=== PATIENT | male | born 1950 | race Caucasian/White ===

== ENCOUNTER 2020-11-21 15:24 | Observation (INO) | payer MEDICARE, SELFPAY ==
--- NOTE | 2020-11-14 10:40 | EKG12_ITS ---
Test Reason : PRE SURGERY Blood Pressure : / mmHG Vent. Rate : 072 BPM Atrial Rate : 072 BPM P-R Int : 200 ms QRS Dur : 082 ms QT Int : 390 ms P-R-T Axes : 046 024 046 degrees QTc Int : 427 ms Sinus rhythm with occasional Premature ventricular complexes Otherwise normal ECG Confirmed by JOSE ANN, KOBE ([id number]), editorial cartoonist ZOILA JAQUEZ ([id number]) on 11/18/2020 11:21:45 AM Referred By: Cory Loyd Confirmed By:MUSTAPHA GARCIA MD
--- NOTE | 2020-11-14 11:10 | RAD_ITS ---
STUDY: X-RAY CHEST REASON FOR EXAM: Male, 70 years old. PRE-OP laminectomy TECHNIQUE: Single AP portable view of the chest. COMPARISON: None. FINDINGS: Hyperinflation. Mild increased markings at the lung bases suggestive of linear scarring. There is no demonstrated pleural abnormality. Sternal cerclage wires and vascular clips are present from a prior sternotomy and coronary artery bypass graft procedure (CABG). Normal mediastinum and katy. Normal visualized pulmonary arteries. There is atherosclerotic calcification of the aortic arch with tortuosity. There are diffuse degenerative changes of the visualized thoracic spine. Mild dextroscoliosis. Normal visualized ribs, clavicles, and shoulders. There is no demonstrated abnormality of the visualized soft tissue structures of the upper abdomen. RAD/Chest PA and Lateral IMPRESSION: Mild increased markings at the lung bases slightly more prominent on the left side suggestive of linear scarring. Electronically Signed: Tacho Vasquez MD at 15:41 EST , Service support ,
[2020-11-14 12:52] LABS: Hematocrit 48.2 % (40-54); Hemoglobin 16.1 g/dL (13.0-16.5); Mean Corp Hgb Conc 33.4 g/dL (32-36); Mean Corpuscular Hgb 30.3 pg (27.0-32.0); Mean Corpuscular Volume 90.8 fL (80-94); Mean Platelet Vol. 10.2 fl (6.2-12.0); Platelet Count 212 K/mm3 (150-450); RBC Distribution Width CV 13.1 % (11.6-14.6); Red Blood Count 5.31 M/mm3 (4.6-6.2)
[2020-11-14 13:29] LABS: Anion Gap 10 (5-15); BUN 18 mg/dL (7-18); BUN/Creat Ratio 12.9 RATIO (10-20); Calcium,Total 8.7 mg/dL (8.5-10.1); Chloride 105 mmol/L (98-107); EST Glomerular Filtration Rate 53 mL/min (>60); Est Glom Filt Rate - Afr Amer 64 mL/min (>60); Glucose 166 mg/dL (74-106); Potassium 4.1 mmol/L (3.5-5.1); Sodium Level 139 mmol/L (136-145)
[2020-11-14 14:40] LABS: Hemoglobin A1c 7.2 % (3.8-5.6)
[2020-11-21] VITALS (13 sets, daily range): BP systolic 113–165; BP diastolic 65–101; PULSE 59–77; RESP 16–18; TEMP 35.7–36.8; O2SAT 85–100; BMI 47.0; BMI 46.7
[2020-11-21] MEDS: Lactated Ringers 1,000 ML 100 ML IV (10:39)
--- NOTE | 2020-11-21 11:51 | DCINST_ITS ---
Discharge Diet: No Restrictions Discharge Activity: - - No repetitive bending twisting or lifting anything greater than 5 pounds May shower in (days): 1 - Keep incision covered with waterproof dressing May resume sexual activity in: 3 weeks Weight Bearing Status: Weight bearing as tolerated Lifting Restrictions: No lifting greater than 5 pounds Additional Activity Instructions:: No bending, twisting, or lifting anything greater than 5 pounds Call your doctor if your incision/area has: Continuous Slow Oozing, Sudden Increased Bleeding, Increased Pain/ Swelling, Increased Redness, Foul Smelling Discharge, Swelling at the incision site Call your doctor if you observe: Fever of 101 or Higher, Coldness, Increased Pain, Numbness or Tingling, Change in Color, Inability to urinate, Inability to have a bowel movement, Using more than one pad per hour, Shortness of breath, Dizziness, Fainting spells, Swelling in the ankles, Chest pain, Prolonged hiccoughing, Increased palpitations (irregular heartbeat), Calf discomfort, Uncontrolled pain Change Dressing in (Days):: 1 - Daily dressing changes with iodine to incision Cleanse incision/area with: Do not get Incision Wet, Keep Dressing Clean & Dry Additional Dressing/Incision Instructions:: Daily dressing changes with iodine to incision Allergies/Adverse Reactions: Allergies ciprofloxacin [From Cipro] Allergy (Verified 11/21/20 10:15) caused injury to spine sulfamethoxazole [From Bactrim] Adverse Reaction (Verified 11/21/20 10:15) ineffective trimethoprim [From Bactrim] Adverse Reaction (Verified 11/21/20 10:15) ineffective Medications to take at Discharge Ascorbic Acid [Vitamin C] 500 mg PO DAILY 11/08/20 B-Complex with Vitamin C [Super B Complex-Vitamin C] 1 ea PO DAILY 11/08/20 Cholecalciferol (Vitamin D3) [Vitamin D3] 2,000 unit PO DAILY 11/08/20 Citalopram [Celexa] 40 mg PO DAILY 11/08/20 Fenofibrate Nanocrystallized [Fenofibrate] 160 mg PO QHS 11/08/20 Gabapentin [Neurontin] 300 mg PO BIDCM 11/08/20 Insulin Regular, Human [Novolin R] 15 unit SC TID 11/08/20 Lorazepam 0.5 mg PO PRN PRN 11/08/20 Multivitamin with Minerals [Multiple Vitamin] 1 ea PO DAILY 11/08/20 Rosuvastatin Calcium [Crestor] 40 mg PO QHS 11/08/20 Ubidecarenone [Coq-10] 200 mg PO DAILY 11/08/20 metFORMIN HCl [Glucophage] 500 mg PO BIDCM 11/08/20 Oxycodone HCl/Acetaminophen [Percocet 5/325] 1 - 2 tab PO Q6H PRN PRN 7 Days #56 tab 11/21/20 The following prescriptions were given: Oxycodone HCl/Acetaminophen [Percocet 5/325] 1 - 2 tab PO Q6H PRN PRN 7 Days #56 tab PRN Reason: Pain Transmission Status: Received by RAJIV [id number] Primary Care Physician: Dano Ballesteros MD [Primary Care Provider] - Test Results: Test results from this visit will be discussed in further detail at your follow- up appointment, if applicable. Please Follow Up With: Cory Loyd DO - 3 weeks
--- NOTE | 2020-11-21 12:45 | RAD_ITS ---
L3-L4 LAMINECTOMY 2 views No priors Findings: 2 intraoperative images of the lumbar spine demonstrate localization device overlying the soft tissues of lumbar spine at approximately the level of L3-4 RAD/Spine 1 View Any Level IMPRESSION: Intraoperative images demonstrate localization device overlying the soft tissues of lumbar spine at approximately the level of L3-4 at 0335 Reported and signed by: Cora Casanova DO Electronically Signed: Cora Casanova DO at 3:34 EST Tel , Service support ,
[2020-11-21] MEDS: THROMBIN (RECOMBINANT) 20,000 UNIT VIAL 20000 UNIT TOPICAL (13:50)
[2020-11-21] MEDS: Bupivacaine 0.25% 30 ML Vial (15:54)
--- NOTE | 2020-11-21 16:16 | PCM.OPRPT ---
Problem List (1) Lumbar stenosis without neurogenic claudication Status: Acute Report of Operation Date of Procedure: 11/21/20 Pre-Operative Diagnosis: 1. Lumbar spondylosis with stenosis L3-4, L4-5. 2. Lumbar degenerative disc disease L3-4, L4-5 Post-Operative Diagnosis: 1. Lumbar spondylosis with stenosis L3-4, L4-5. 2. Lumbar degenerative disc disease L3-4, L4-5 Surgery/Procedure Performed:: 1. L3 laminectomy. 2. L4 laminectomy. 3. Bilateral L3-4 and L4-5 foraminotomies. 4. Decompression of bilateral L3 and L4 nerve roots Description of Surgical Findings:: STATEMENT OF MEDICAL NECESSITY: The patient is a 70-year-old male with intractable back and leg pain. Image studies confirm above diagnosis. He has failed conservative treatment to include: medicine, therapy, and injections. The patient opted for operative intervention, understanding the risks to include, but not limited to infection, bleeding, damage to nerves, arteries, and veins, possibility of spinal fluid leak, continued pain, need for further surgery, deep vein thrombosis, pulmonary embolism, heart attack, risk of stroke, or . DESCRIPTION OF PROCEDURE: The patient was transferred to the [facility] operating table in the prone position. All bony prominences were padded accordingly. The lumbar spine was prepped and draped in standard surgical fashion. Jeet huggers were not turned on until drapes were placed and sealed with Ioban. A Midline incision was made and taken down to the lumbodorsal fascia. This was divided and subperiosteal dissection taken down to the level of facet joints. Deep retractors were placed. I began with the Misonix bone scalpel, then a series of rongeurs and Kerrisons removing the spinous process and lamina at L3, and L4. Then, foraminotomies were performed decompressing bilateral the L3 and L4 nerve roots. The incision was then thoroughly irrigated. Tissel was placed over the dura as a hemostatic agent. A deep drain was placed. Fascia was closed with #1 Vicryl, subcutaneous with 2-0 Vicryl, and skin with 2-0 nylon. Sterile dressing was applied with 4 x 4, ABD, and tape. Sponge, instrument, and needle counts were correct at the end of the case. The patient was extubated, taken to PACU without incident. Type of Anesthesia:: General Drains: Hemovac Estimated Blood Loss (mL): 200 cc Fluids Replaced: 1600 cc - Complications None - Admit VTE Documentation VTE Mechan Device Prophylaxis: SCD's, Thigh High VERA Palacios
--- NOTE | 2020-11-21 16:37 | PCM.PN.ORT ---
Patient Problems: Active and Suspected Problems Lumbar stenosis without neurogenic claudication (Acute) Subjective: The patient was seen and examined postoperatively in the PACU. He is resting comfortably. His pain is controlled. He has no complaints. He is alert and answering questions and following commands - Physical Exam Vitals/I&O's: Vital Signs Temp Pulse Resp BP Pulse Ox 96.2 F L 73 16 165/101 H 96 11/21/20 16:10 11/21/20 16:10 11/21/20 16:10 11/21/20 16:10 11/21/20 16:10 Oxygen Delivery Method Room Air Weight: 332 lb 14.368 oz Body Mass Index (BMI) 47.0 Intake and Output for Last 24 Hours 11/19/20 11/20/20 11/21/20 23:59 23:59 23:59 Intake Total 115 / 115 Output Total 300 / 300 Balance -185 / -185 General: Alert, Oriented x3, Cooperative, No apparent distress HEENT: PERRLA, EOMI Neck: Supple, No JVD Lungs: Normal air movement Cardiovascular: Regular rate, Regular Rhythm Abdomen: Soft, Non Tender Extremities: No cyanosis, No edema, Capillary Refill Less than 3 Seconds, No Calf Tenderness Skin: - - Dressing clean dry and intact. Drain in place and functioning Neurological: Cranial nerves II-XII grossly intact, Deep Tendon Reflexes 2+/4 and Symmetrical, Neuro grossly intact, Motor Exam 5/5 strength throughout Psych/Mental Status: Normal Affect, Appropriate Microbiology Past 72 Hours 11/20/20 10:50 Interface Orders SARS-CoV-2 Antigen (Rapid) - Final Current Medications Lactated Ringer's () 1,000 mls @ 100 mls/hr IV .Q10H EKY Last Admin: 11/21/20 10:39 Dose: 100 mls/hr Documented by: Cefazolin Sodium 2 gm/ Sodium (Chloride) 110 mls @ 150 mls/hr IV Q8 KEY Morphine Sulfate (Morphine 4 Mg/Ml Syringe) 2 - 4 mg IV Q2H PRN PRN PRN Reason: 7-10 out of 10 pain Morphine Sulfate (Morphine 2 Mg/Ml Syringe) 2 - 4 mg IV Q2H PRN PRN PRN Reason: 7-10 out of 10 pain Ondansetron HCl (Ondansetron 4 Mg/2 Ml Vial) 4 mg IV Q8H PRN PRN PRN Reason: NAUSEA Oxycodone HCl (Oxycodone 5 Mg Tablet) 2.5 - 5 mg PO Q4H PRN PRN PRN Reason: 4-7 out of 10 Medical Necessity - Tobacco Use Smoking Status: Former smoker Tobacco Use: Non-smoker Assessment/Plan All Active Problems Lumbar stenosis without neurogenic claudication (Acute) Admit to floor See orders Pain control and mobilization as tolerated with assistance Keep Magallon catheter in place until mobilizing Continue antibiotics until drain removed Reinforce dressing as needed. Do not remove dressing. Dr. Loyd will perform first dressing change with drain removal
[2020-11-21 16:55] LABS: Bedside Glucose 156 mg/dL (70-110)
--- NOTE | 2020-11-21 17:20 | PN_ITS ---
<Luis Ackerman - Last Filed: 11/21/20 17:20> Patient Problems: Active and Suspected Problems Lumbar stenosis without neurogenic claudication (Acute) Reason for Visit: post op lumbar laminectomy Subjective: Pt is a 70 year old male with pmhx of DMt2, last a1c 7.2, hx HLD, anxiety/depression, who today underwent a L3 L4 laminectomy with Dr. Loyd. He is resting comfortably in semi danielle position in bed in PACU. He c/o 4/10 pain in the lumbar region, centrally. He has no radicular pain or parasthesias. No fever/chills. No SOB/cough. No Nausea. Vitals/I&O's: Vital Signs Temp Pulse Resp BP Pulse Ox 96.2 F L 63 16 132/75 H 98 11/21/20 16:10 11/21/20 17:15 11/21/20 17:15 11/21/20 17:15 11/21/20 17:15 Oxygen Flow Rate (L/min) 2 Oxygen Delivery Method Nasal Cannula Weight: 332 lb 14.368 oz Body Mass Index (BMI) 47.0 Intake and Output for Last 24 Hours 11/19/20 11/20/20 11/21/20 23:59 23:59 23:59 Intake Total 1115 / 1115 Output Total 300 / 300 Balance 815 / 815 General: Alert, Oriented x3, Cooperative HEENT: Atraumatic, PERRLA, EOMI, Normocephalic Neck: Supple, No JVD, Negative Carotid Bruits Lungs: Clear to auscultation, Normal air movement Cardiovascular: Regular rate, No murmurs Abdomen: Bowel Sounds Present, Soft, Non Tender Extremities: No edema, Capillary Refill Less than 3 Seconds Skin: No rashes, No breakdown Musculoskeletal: No Tenderness to Palpation of Joints or Extremities Neurological: Cranial nerves II-XII grossly intact Psych/Mental Status: Normal Affect, Appropriate, Alert and oriented to time, place, person, mood and affect Microbiology Past 72 Hours 11/20/20 10:50 Interface Orders SARS-CoV-2 Antigen (Rapid) - Final Laboratory Results 11/21/20 16:53: POC Glucose 156 H Current Medications Ascorbic Acid (Ascorbic Acid 500 Mg Tablet) 500 mg PO DAILY [facility] Atorvastatin Calcium (Atorvastatin Calcium 80 Mg Tablet) 80 mg PO QHS [facility] Cholecalciferol (Cholecalciferol (Vit D3) 1,000 Unit (25mcg)) 2,000 unit PO DAILY [facility] Citalopram Hydrobromide (Citalopram 40 Mg Tablet) 40 mg PO DAILY [facility] Dextrose (Dextrose 50%-Water 25 Gm/50 Ml Disp.Syrin) 0 gm IV X1 PRN; Protocol PRN Reason: Hypoglycemia Fenofibrate (Fenofibrate 145 Mg Tablet) 145 mg PO QHS [facility] Gabapentin (Gabapentin 300 Mg Capsule) [facility] Glucagon (Glucagon 1 Mg/Ml Syringe) 1 mg IM .X1 PRN PRN Reason: Hypoglycemia Lactated Ringer's () 1,000 mls @ 100 mls/hr IV .Q10H [facility] Last Infusion: 11/21/20 16:45 Dose: Infused Documented by: Cefazolin Sodium 2 gm/ Sodium (Chloride) 110 mls @ 150 mls/hr IV Q8 [facility] Insulin Human Lispro (Insulin Lispro 100 Unit/Ml Insuln.Pen) 0 unit SC ACHS KEY; Protocol Insulin Human Lispro (Insulin Lispro 100 Unit/Ml Insuln.Pen) 15 unit SC 0800,1200,1700 [facility] Lorazepam (Lorazepam 0.5 Mg Tablet) 0.5 mg PO PRN PRN PRN Reason: SLEEP Morphine Sulfate (Morphine 4 Mg/Ml Syringe) 2 - 4 mg IV Q2H PRN PRN PRN Reason: 7-10 out of 10 pain Morphine Sulfate (Morphine 2 Mg/Ml Syringe) 2 - 4 mg IV Q2H PRN PRN PRN Reason: 7-10 out of 10 pain Multivitamins (Vitamin B Comp W-C Capsule) 1 capsule PO DAILY [facility] Multivitamins/Minerals (Multivitamins,Ther W-Minerals Tablet) 1 tablet PO [facility]ILY[facility] Ondansetron HCl (Ondansetron 4 Mg/2 Ml Vial) 4 mg IV Q8H PRN PRN PRN Reason: NAUSEA Oxycodone HCl (Oxycodone 5 Mg Tablet) 2.5 - 5 mg PO Q4H PRN PRN PRN Reason: 4-7 out of 10 STROKE Vital Signs/Narrative: Vital Signs Temp Pulse Resp BP Pulse Ox 11/21/20 17:15 63 16 132/75 H 98 11/21/20 17:00 66 16 134/78 H 99 11/21/20 16:45 59 L 16 123/79 H 100 11/21/20 16:30 65 16 136/77 H 100 11/21/20 16:15 70 16 152/85 H 94 11/21/20 16:10 96.2 F L 73 16 165/101 H 85 Medical Necessity - Tobacco Use Smoking Status: Former smoker Tobacco Use: Non-smoker Assessment/Plan All Active Problems Lumbar stenosis without neurogenic claudication (Acute) 1. Lumbar stenosis, s/p L3/4 laminectomy - care as per Dr. Loyd. 01/25 pain, otherwise doing well. 2. DMt2 - hold metformin, continue insulin home regimen (when diet started) + Sliding scale 3. HLD - statin, fenofibrate 4. Anx/Depression - resume home meds in the AM. DVT ppx: per surgery Thank you for the opportunity to participate in the care of this patient. This patient was seen by Luis Ackerman PA-C under the supervision of Dr. Cooper. <Juliana Cooper - Last Filed: 11/21/20 19:15> Vitals/I&O's: Vital Signs Temp Pulse Resp BP Pulse Ox 98.2 F 67 18 130/93 H 98 11/21/20 18:14 11/21/20 18:14 11/21/20 18:14 11/21/20 18:14 11/21/20 18:14 Oxygen Flow Rate (L/min) 2 Oxygen Delivery Method Nasal Cannula Weight: 151 kg Body Mass Index (BMI) 47.0 Finger Stick Blood Glucose 156 Intake and Output for Last 24 Hours 11/19/20 11/20/20 11/21/20 23:59 23:59 23:59 Intake Total 1115 / 1115 Output Total 450 / 450 Balance 665 / 665 Microbiology Past 72 Hours 11/20/20 10:50 Interface Orders SARS-CoV-2 Antigen (Rapid) - Final Laboratory Results 11/21/20 16:53: POC Glucose 156 H Current Medications Ascorbic Acid (Ascorbic Acid 500 Mg Tablet) 500 mg PO DAILY KEY Atorvastatin Calcium (Atorvastatin Calcium 80 Mg Tablet) 80 mg PO QHS [facility] Cholecalciferol (Cholecalciferol (Vit D3) 1,000 Unit (25mcg)) 2,000 unit PO DAILY [facility] Citalopram Hydrobromide (Citalopram 40 Mg Tablet) 40 mg PO DAILY [facility] Dextrose (Dextrose 50%-Water 25 Gm/50 Ml Disp.Syrin) 0 gm IV X1 PRN; Protocol PRN Reason: Hypoglycemia Fenofibrate (Fenofibrate 145 Mg Tablet) 145 mg PO QHS [facility] Gabapentin (Gabapentin 300 Mg Capsule) 300 mg PO BIDCM [facility] Glucagon (Glucagon 1 Mg/Ml Syringe) 1 mg IM .X1 PRN PRN Reason: Hypoglycemia Lactated Ringer's () 1,000 mls @ 100 mls/hr IV .Q10H [facility] Last Infusion: 11/21/20 16:45 Dose: Infused Documented by: Cefazolin Sodium 2 gm/ Sodium (Chloride) 110 mls @ 150 mls/hr IV Q8 [facility] Insulin Human Lispro (Insulin Lispro 100 Unit/Ml Insuln.Pen) 0 unit SC ACHS KEY; Protocol Insulin Human Lispro (Insulin Lispro 100 Unit/Ml Insuln.Pen) 15 unit SC 0800,1200,1700 [facility] Lorazepam (Lorazepam 0.5 Mg Tablet) 0.5 mg PO PRN PRN PRN Reason: SLEEP Morphine Sulfate (Morphine 4 Mg/Ml Syringe) 2 - 4 mg IV Q2H PRN PRN PRN Reason: 7-10 out of 10 pain Morphine Sulfate (Morphine 2 Mg/Ml Syringe) 2 - 4 mg IV Q2H PRN PRN PRN Reason: 7-10 out of 10 pain Multivitamins (Vitamin B Comp W-C Capsule) 1 capsule PO DAILY [facility] Multivitamins/Minerals (Multivitamins,Ther W-Minerals Tablet) 1 tablet PO [facility]ILY[facility] Ondansetron HCl (Ondansetron 4 Mg/2 Ml Vial) 4 mg IV Q8H PRN PRN PRN Reason: NAUSEA Oxycodone HCl (Oxycodone 5 Mg Tablet) 2.5 - 5 mg PO Q4H PRN PRN PRN Reason: 4-7 out of 10 STROKE Vital Signs/Narrative: Vital Signs Temp Pulse Resp BP Pulse Ox 11/21/20 18:14 98.2 F 67 18 130/93 H 98 11/21/20 17:26 97.8 F 65 16 126/77 H 98 11/21/20 17:15 63 16 132/75 H 98 11/21/20 17:00 66 16 134/78 H 99 11/21/20 16:45 59 L 16 123/79 H 100 11/21/20 16:30 65 16 136/77 H 100 11/21/20 16:15 70 16 152/85 H 94 11/21/20 16:10 96.2 F L 73 16 165/101 H 85 Assessment/Plan This patient was seen in conjunction with DIEGO Tilley. I have independently interviewed and examined the patient and reviewed pertinent historical, laboratory, and other data. Please refer to DIEGO Tilley note for his patient's presentation, findings, and recommendations. I have reviewed and his note and concur with his documentation 70-year-old male with past medical history of type II DM, lipidemia, anxiety/depression, chronic back pain who comes in for elective L3-L4, L4-L5 laminectomy. Patient was seen in the immediate postop period. His pain is fairly controlled. He denied any improvement in his tingling and numbness in the right lower extremity. He denied any incontinence of stool or urine. Vitals reviewed; stable, on 2 L oxygen Labs reviewed -noted creatinine of 1.40, unknown baseline, HbA1c 7.2 Physical Exam: Gen: Morbidly obese, not pale, not jaundiced, appears comfortable on 2 L of oxygen CVS:HS I +II, regular, no murmurs RESP: Diminished at lung bases GI: BS present and normal, soft, nontender, no palpable organs EXT:No edema ASSESSMENT: 1. Postop day #0 status post L3-L4, L4-L5 laminectomy 2. Type II DM 3. Hyperlipidemia 4. Anxiety/depression Plan: Continue with IV fluids Hold Metformin Continue with pain control with oxycodone and morphine as needed Continue to monitor blood sugars before meals at bedtime and insulin sliding scale Encourage use of incentive spirometer PT and OT to evaluate and treat Rest of surgical recommendations per primary neurosurgery team Inpatient E&M: [id number] Subs Hosp L2
[2020-11-21] MEDS: Gabapentin 300 MG Capsule PO (18:53)
[2020-11-21] MEDS: oxyCODONE 5 MG Tablet PO (20:47)
[2020-11-21] MEDS: Fenofibrate 145 MG Tablet PO (20:47)
[2020-11-21] MEDS: Atorvastatin Calcium 80 MG Tablet PO (20:47)
[2020-11-21] MEDS: Insulin Lispro 100 UNIT/ML INSULN.PEN SC (20:57)
[2020-11-21 21:01] LABS: Bedside Glucose 192 mg/dL (70-110)
[2020-11-21] MEDS: Cefazolin 2 GM in 0.9% Normal Saline 100 ML IV (22:39)
[2020-11-21] MEDS: Morphine 2 MG/ML Syringe IV (22:39)
[2020-11-22] VITALS (15 sets, daily range): BP systolic 104–143; BP diastolic 60–78; PULSE 68–94; RESP 16–18; TEMP 36.7–38.1; O2SAT 92–98
--- NOTE | 2020-11-22 00:16 | PCS.PANDOC ---
PANDEMIC DOCUMENTATION INITIATED: Date:11/22/2020 Time: 0014
[2020-11-22] MEDS: Lactated Ringers 1,000 ML 100 ML IV ×2 (02:19→12:43)
[2020-11-22] MEDS: oxyCODONE 5 MG Tablet PO ×3 (02:20→15:57)
--- NOTE | 2020-11-22 03:58 | EKG12_ITS ---
Test Reason : TELE Blood Pressure : / mmHG Vent. Rate : 089 BPM Atrial Rate : 089 BPM P-R Int : 328 ms QRS Dur : 084 ms QT Int : 344 ms P-R-T Axes : 048 -01 068 degrees QTc Int : 418 ms Sinus rhythm with 1st degree A-V block Inferior infarct , age undetermined Abnormal ECG Confirmed by ADRIANNA ANN, PERRY ([id number]), photographic editor PAXTON AGUIRRE ([id number]) on 11/22/2020 10:48:58 AM Referred By: Cory Loyd Confirmed By:PERRY RODAS MD
[2020-11-22] MEDS: Cefazolin 2 GM in 0.9% Normal Saline 100 ML IV ×3 (06:24→22:19)
[2020-11-22 07:10] LABS: Bedside Glucose 187 mg/dL (70-110)
[2020-11-22 07:11] LABS: Absolute Lymphocyte Count 2.23 X10^3/uL (0.83-4.51); Absolute Neutrophil Count 6.5 X10^3/uL (2.0-7.7); Basophil# 0.04 X10^3/uL; Basophil% 0.4 % (0-1); Eosinophil# 0.11 X10^3/uL; Eosinophils% 1.1 % (0-5); Hematocrit 43.7 % (40-54); Hemoglobin 14.2 g/dL (13.0-16.5); Lymphocyte # 2.23 X10^3/ul (4.0); Lymphocyte % 21.7 % (19-41); Mean Corp Hgb Conc 32.5 g/dL (32-36); Mean Corpuscular Hgb 30.2 pg (27.0-32.0); Mean Platelet Vol. 9.3 fl (6.2-12.0); Monocyte# 1.34 X10^3/uL; NRBC Flagged by Analyzer 0 % (0-5); Neutrophil % 63.3 % (47-70); Platelet Count 204 K/mm3 (150-450); RBC Distribution Width CV 13.4 % (11.6-14.6); RBC Distribution Width SD 45.8 fl (35.1-43.9); White Blood Count 10.3 K/mm3 (4.4-11.0)
[2020-11-22 07:41] LABS: ALB/GLOB Ratio 1.1 RATIO (0.9-2.4); AST(SGOT) 24 U/L (15-37); Alanine Aminotransfer ALT/SGPT 21 U/L (16-61); Albumin, Serum 3.3 g/dL (3.2-5.0); Alkaline Phosphatase 61 U/L (45-117); Anion Gap 5 (5-15); BUN 18 mg/dL (7-18); Calcium,Total 8.5 mg/dL (8.5-10.1); Chloride 102 mmol/L (98-107); EST Glomerular Filtration Rate 64 mL/min (>60); Est Glom Filt Rate - Afr Amer 77 mL/min (>60); Estimated Creatinine Clearance 61.01 ml/min; Globulin 3.1 g/dL (2.2-4.2); Glucose 159 mg/dL (74-106); Potassium 4.2 mmol/L (3.5-5.1); Protein, Total 6.4 g/dL (6.4-8.2); Sodium Level 137 mmol/L (136-145)
[2020-11-22 08:06] LABS: Bedside Glucose 166 mg/dL (70-110)
[2020-11-22] MEDS: Gabapentin 300 MG Capsule PO ×2 (09:22→17:26)
[2020-11-22] MEDS: Ascorbic Acid 500 MG Tablet PO (09:22)
[2020-11-22] MEDS: Citalopram 40 MG TABLET PO (09:22)
[2020-11-22] MEDS: Multivitamins,Ther W-Minerals Tablet 1 TABLET PO (09:22)
[2020-11-22] MEDS: Vitamin B Comp W-C Capsule 1 CAP PO (09:22)
[2020-11-22] MEDS: Insulin Lispro 100 UNIT/ML INSULN.PEN 15 UNIT SC ×3 (09:23→18:27)
[2020-11-22] MEDS: Insulin Lispro 100 UNIT/ML INSULN.PEN SC ×4 (09:23→22:22)
--- NOTE | 2020-11-22 09:36 | PN_ITS ---
Patient Problems: Active and Suspected Problems Lumbar stenosis without neurogenic claudication (Acute) Subjective: Doing well, still some back pain, has not had a BM yet. Vital signs and lab work is unremarkable. Vitals/I&O's: Vital Signs Temp Pulse Resp BP Pulse Ox 100.5 F H 89 16 104/70 94 11/22/20 07:46 11/22/20 07:55 11/22/20 07:55 11/22/20 07:46 11/22/20 07:55 Oxygen Flow Rate (L/min) 1 Oxygen Delivery Method Room Air Weight: 335 lb 1.642 oz Body Mass Index (BMI) 46.7 Finger Stick Blood Glucose 156 Intake and Output for Last 24 Hours 11/20/20 11/21/20 11/22/20 23:59 23:59 23:59 Intake Total 1825 / 1825 518.33 / 518.33 Output Total 760 / 760 800 / 800 Balance 1065 / 1065 -281.67 / -281.67 General: Alert, Oriented x3, Cooperative, No apparent distress HEENT: Atraumatic, PERRLA, EOMI, Normocephalic Oral: Moist Mucosa Neck: Supple, No JVD Lungs: Clear to auscultation, Normal air movement, No rhonchi, No wheeze, No rales Cardiovascular: Regular rate, Regular Rhythm, Normal S1, Normal S2, No murmurs Abdomen: Soft, Non Tender, Non-Distended, No Hepato-splenomegaly Extremities: No edema, Capillary Refill Less than 3 Seconds Skin: No rashes, No breakdown Neurological: Neuro grossly intact, Sensory exam intact to light touch and pain Psych/Mental Status: Normal Affect, Appropriate Microbiology Past 72 Hours 11/20/20 10:50 Interface Orders SARS-CoV-2 Antigen (Rapid) - Final Laboratory Results 11/21/20 10:25: POC Glucose 187 H 11/21/20 16:53: POC Glucose 156 H 11/21/20 20:54: POC Glucose 192 H 11/22/20 06:24: WBC 10.3, RBC 4.70, Hgb 14.2, Hct 43.7, MCV 93.0, MCH 30.2, MCHC 32.5, RDW Std Deviation 45.8 H, RDW Coeff of Tariq 13.4, Plt Count 204, MPV 9.3, Immature Gran % (Auto) 0.500, Neut % (Auto) 63.3, Lymph % (Auto) 21.7, [place] % (Auto) 13.0 H, Eos % (Auto) 1.1, Baso % (Auto) 0.4, Absolute Neuts (auto) 6.5, Absolute Lymphs (auto) 2.23, Nucleated RBC % 0 11/22/20 06:24: Sodium 137, Potassium 4.2, Chloride 102, Carbon Dioxide 30.0, Anion Gap 5, BUN 18, Creatinine 1.20, Estim Creat Clear Calc 61.01, Est GFR (MDRD) Af Amer 77, Est GFR (MDRD) Non-Af 64, BUN/Creatinine Ratio 15.0, Glucose 159 H, Calcium 8.5, Total Bilirubin 0.60, AST 24, ALT 21, Alkaline Phosphatase 61, Total Protein 6.4, Albumin 3.3, Globulin 3.1, Albumin/Globulin Ratio 1.1 11/22/20 08:01: POC Glucose 166 H Current Medications Ascorbic Acid (Ascorbic Acid 500 Mg Tablet) 500 mg PO DAILY [facility] Last Admin: 11/22/20 09:22 Dose: 500 mg Documented by: Atorvastatin Calcium (Atorvastatin Calcium 80 Mg Tablet) 80 mg PO QHS [facility] Last Admin: 11/21/20 20:47 Dose: 80 mg Documented by: Cholecalciferol (Cholecalciferol (Vit D3) 1,000 Unit (25mcg)) 2,000 unit PO DAILY [facility] Last Admin: 11/22/20 09:22 Dose: 2,000 unit Documented by: Citalopram Hydrobromide (Citalopram 40 Mg Tablet) 40 mg PO DAILY [facility] Last Admin: 11/22/20 09:22 Dose: 40 mg Documented by: Dextrose (Dextrose 50%-Water 25 Gm/50 Ml Disp.Syrin) 0 gm IV X1 PRN; Protocol PRN Reason: Hypoglycemia Fenofibrate (Fenofibrate 145 Mg Tablet) 145 mg PO QHS [facility] Last Admin: 11/21/20 20:47 Dose: 145 mg Documented by: Gabapentin (Gabapentin 300 Mg Capsule) 300 mg PO BIDCM [facility] Last Admin: 11/22/20 09:22 Dose: 300 mg Documented by: Glucagon (Glucagon 1 Mg/Ml Syringe) 1 mg IM .X1 PRN PRN Reason: Hypoglycemia Lactated Ringer's () 1,000 mls @ 100 mls/hr IV .Q10H [facility] Last Infusion: 11/22/20 07:09 Dose: 100 mls/hr Documented by: Cefazolin Sodium 2 gm/ Sodium (Chloride) 110 mls @ 150 mls/hr IV Q8 [facility] Last Infusion: 11/22/20 07:08 Dose: Infused Documented by: Insulin Human Lispro (Insulin Lispro 100 Unit/Ml Insuln.Pen) 0 unit SC ACHS [facility]; Protocol Last Admin: 11/22/20 09:23 Dose: 1 u Documented by: Insulin Human Lispro (Insulin Lispro 100 Unit/Ml Insuln.Pen) 15 unit SC 0800,1200,1700 [facility] Last Admin: 11/22/20 09:23 Dose: 15 u Documented by: Lorazepam (Lorazepam 0.5 Mg Tablet) 0.5 mg PO BID PRN PRN PRN Reason: SLEEP Morphine Sulfate (Morphine 4 Mg/Ml Syringe) 2 - 4 mg IV Q2H PRN PRN PRN Reason: 7-10 out of 10 pain Morphine Sulfate (Morphine 2 Mg/Ml Syringe) 2 - 4 mg IV Q2H PRN PRN PRN Reason: 7-10 out of 10 pain Last Admin: 11/21/20 22:39 Dose: 2 mg Documented by: Multivitamins (Vitamin B Comp W-C Capsule) 1 capsule PO DAILY [facility] Last Admin: 11/22/20 09:22 Dose: 1 capsule Documented by: Multivitamins/Minerals (Multivitamins,Ther W-Minerals Tablet) [facility] Last Admin: 11/22/20 09:22 Dose: 1 tablet Documented by: Ondansetron HCl (Ondansetron 4 Mg/2 Ml Vial) 4 mg IV Q8H PRN PRN PRN Reason: NAUSEA Oxycodone HCl (Oxycodone 5 Mg Tablet) 2.5 - 5 mg PO Q4H PRN PRN PRN Reason: 4-7 out of 10 Last Admin: 11/22/20 06:23 Dose: 5 mg Documented by: Sodium Chloride (0.9% Saline Lock 10 Ml Syringe) 10 - 40 ml IV UD PRN PRN Reason: SALINE FLUSH STROKE Vital Signs/Narrative: Vital Signs Temp Pulse Resp BP Pulse Ox 11/22/20 07:55 89 16 94 11/22/20 07:46 100.5 F H 89 16 104/70 94 11/22/20 06:30 99.0 F 93 18 104/76 92 Medical Necessity - Tobacco Use Smoking Status: Former smoker Tobacco Use: Non-smoker Assessment/Plan All Active Problems Lumbar stenosis without neurogenic claudication (Acute) 1. Lumbar stenosis status post L3/4 laminectomy postop 11/21/2020 -Pain management per primary -Okay for discharge from a medical standpoint 2. HLD -Blood pressure is stable -Continue with his home statin and fenofibrate 3. DM 2 -Blood sugars are stable, continue with sliding scale insulin and home insulin regimen while here -Can restart Metformin on discharge 4. Anxiety/depression -Stable -Continue with his home medications DVT: Per primary OBSV E&M: 72875 Subsequent observation care L2
[2020-11-22 11:50] LABS: Bedside Glucose 172 mg/dL (70-110)
--- NOTE | 2020-11-22 15:43 | CASEMGMT ---
PIA COATS completed MOYA form with patient. PIA COATS explained MOYA form to patient. Patient voiced understanding and signed MOYA form. PIA COATS filed MOYA form in chart and patient provided with copy. Patient had no further questions or concerns at this time.
--- NOTE | 2020-11-22 16:06 | PCM.PN.ORT ---
Patient Problems: Active and Suspected Problems Lumbar stenosis without neurogenic claudication (Acute) Subjective: The patient was seen and examined. He is postop day 1 status post L3 and L4 laminectomy. His pain is well controlled. His drain is in place and functioning. Last output was about 60 cc over 4 hours. He has been mobilizing well with physical therapy and walking the halls. He is tolerating his diet. No medical issues reported per nurse. He has been urinating without issue - Physical Exam Vitals/I&O's: Vital Signs Temp Pulse Resp BP Pulse Ox 98.9 F 88 18 136/72 H 95 11/22/20 14:30 11/22/20 12:40 11/22/20 12:40 11/22/20 12:40 11/22/20 12:40 Oxygen Flow Rate (L/min) 1 Oxygen Delivery Method Room Air Weight: 335 lb 1.642 oz Body Mass Index (BMI) 46.7 Finger Stick Blood Glucose 156 Intake and Output for Last 24 Hours 11/20/20 11/21/20 11/22/20 23:59 23:59 23:59 Intake Total 1825 / 1825 2765.00 / 2765.00 Output Total 760 / 760 1100 / 1100 Balance 1065 / 1065 1665.00 / 1665.00 General: Alert, Oriented x3, Cooperative, No apparent distress HEENT: PERRLA, EOMI Neck: Supple, No JVD Lungs: Normal air movement Cardiovascular: Regular rate, Regular Rhythm Abdomen: Soft, Non Tender, Non-Distended Extremities: No cyanosis, Capillary Refill Less than 3 Seconds, No Calf Tenderness Skin: - - Dressing clean dry and intact. Drain in place and functioning Neurological: Cranial nerves II-XII grossly intact, Deep Tendon Reflexes 2+/4 and Symmetrical, Neuro grossly intact, Motor Exam 5/5 strength throughout Psych/Mental Status: Normal Affect, Appropriate Microbiology Past 72 Hours 11/20/20 10:50 Interface Orders SARS-CoV-2 Antigen (Rapid) - Final Laboratory Results 11/21/20 10:25: POC Glucose 187 H 11/21/20 16:53: POC Glucose 156 H 11/21/20 20:54: POC Glucose 192 H 11/22/20 06:24: WBC 10.3, RBC 4.70, Hgb 14.2, Hct 43.7, MCV 93.0, MCH 30.2, MCHC 32.5, RDW Std Deviation 45.8 H, RDW Coeff of Tariq 13.4, Plt Count 204, MPV 9.3, Immature Gran % (Auto) 0.500, Neut % (Auto) 63.3, Lymph % (Auto) 21.7, Pershing % (Auto) 13.0 H, Eos % (Auto) 1.1, Baso % (Auto) 0.4, Absolute Neuts (auto) 6.5, Absolute Lymphs (auto) 2.23, Nucleated RBC % 0 11/22/20 06:24: Sodium 137, Potassium 4.2, Chloride 102, Carbon Dioxide 30.0, Anion Gap 5, BUN 18, Creatinine 1.20, Estim Creat Clear Calc 61.01, Est GFR (MDRD) Af Amer 77, Est GFR (MDRD) Non-Af 64, BUN/Creatinine Ratio 15.0, Glucose 159 H, Calcium 8.5, Total Bilirubin 0.60, AST 24, ALT 21, Alkaline Phosphatase 61, Total Protein 6.4, Albumin 3.3, Globulin 3.1, Albumin/Globulin Ratio 1.1 11/22/20 08:01: POC Glucose 166 H 11/22/20 11:37: POC Glucose 172 H Current Medications Ascorbic Acid (Ascorbic Acid 500 Mg Tablet) 500 mg PO DAILY [facility] Last Admin: 11/22/20 09:22 Dose: 500 mg Documented by: Atorvastatin Calcium (Atorvastatin Calcium 80 Mg Tablet) 80 mg PO QHS [facility] Last Admin: 11/21/20 20:47 Dose: 80 mg Documented by: Cholecalciferol (Cholecalciferol (Vit D3) 1,000 Unit (25mcg)) 2,000 unit PO DAILY [facility] Last Admin: 11/22/20 09:22 Dose: 2,000 unit Documented by: Citalopram Hydrobromide (Citalopram 40 Mg Tablet) 40 mg PO DAILY [facility] Last Admin: 11/22/20 09:22 Dose: 40 mg Documented by: Dextrose (Dextrose 50%-Water 25 Gm/50 Ml Disp.Syrin) 0 gm IV X1 PRN; Protocol PRN Reason: Hypoglycemia Fenofibrate (Fenofibrate 145 Mg Tablet) 145 mg PO QHS [facility] Last Admin: 11/21/20 20:47 Dose: 145 mg Documented by: Gabapentin (Gabapentin 300 Mg Capsule) 300 mg PO BIDCM [facility] Last Admin: 11/22/20 09:22 Dose: 300 mg Documented by: Glucagon (Glucagon 1 Mg/Ml Syringe) 1 mg IM .X1 PRN PRN Reason: Hypoglycemia Lactated Ringer's () 1,000 mls @ 100 mls/hr IV .Q10H [facility] Last Infusion: 11/22/20 15:14 Dose: 100 mls/hr Documented by: Cefazolin Sodium 2 gm/ Sodium (Chloride) 110 mls @ 150 mls/hr IV Q8 [facility] Last Infusion: 11/22/20 15:14 Dose: Infused Documented by: Insulin Human Lispro (Insulin Lispro 100 Unit/Ml Insuln.Pen) 0 unit SC ACHS [facility]; Protocol Last Admin: 11/22/20 12:43 Dose: 1 u Documented by: Insulin Human Lispro (Insulin Lispro 100 Unit/Ml Insuln.Pen) 15 unit SC 0800,1200,1700 [facility] Last Admin: 11/22/20 12:43 Dose: 15 u Documented by: Lorazepam (Lorazepam 0.5 Mg Tablet) 0.5 mg PO BID PRN PRN PRN Reason: SLEEP Morphine Sulfate (Morphine 4 Mg/Ml Syringe) 2 - 4 mg IV Q2H PRN PRN PRN Reason: 7-10 out of 10 pain Morphine Sulfate (Morphine 2 Mg/Ml Syringe) 2 - 4 mg IV Q2H PRN PRN PRN Reason: 7-10 out of 10 pain Last Admin: 11/21/20 22:39 Dose: 2 mg Documented by: Multivitamins (Vitamin B Comp W-C Capsule) 1 capsule PO DAILY [facility] Last Admin: 11/22/20 09:22 Dose: 1 capsule Documented by: Multivitamins/Minerals (Multivitamins,Ther W-Minerals Tablet) [facility] Last Admin: 11/22/20 09:22 Dose: 1 tablet Documented by: Ondansetron HCl (Ondansetron 4 Mg/2 Ml Vial) 4 mg IV Q8H PRN PRN PRN Reason: NAUSEA Oxycodone HCl (Oxycodone 5 Mg Tablet) 2.5 - 5 mg PO Q4H PRN PRN PRN Reason: 4-7 out of 10 Last Admin: 11/22/20 15:57 Dose: 5 mg Documented by: Sodium Chloride (0.9% Saline Lock 10 Ml Syringe) 10 - 40 ml IV UD PRN PRN Reason: SALINE FLUSH Medical Necessity - Tobacco Use Smoking Status: Former smoker Tobacco Use: Non-smoker Assessment/Plan All Active Problems Lumbar stenosis without neurogenic claudication (Acute) Postoperative day 1 status post L3 and L4 laminectomy decompression Keep drain in place until output decreases. Keep antibiotics going until drain is pulled. Reinforce dressing as needed. Dr. Loyd will perform first dressing change when he pulls the drain Continue pain control and mobilization with physical therapy Medical management per hospitalist
[2020-11-22 17:35] LABS: Bedside Glucose 201 mg/dL (70-110)
[2020-11-22] MEDS: Fenofibrate 145 MG Tablet PO (22:19)
[2020-11-22] MEDS: Atorvastatin Calcium 80 MG Tablet PO (22:19)
[2020-11-22] MEDS: LORazepam 0.5 MG Tablet PO (22:31)
[2020-11-22 22:45] LABS: Bedside Glucose 219 mg/dL (70-110)
--- NOTE | 2020-11-22 23:57 | NURSING ---
pt having urinary frequency urine sent per order, hospitalist aware, discussed st cath order pt states he does not want to be cathed. voided an additional 200ml after scan
[2020-11-23 00:01] LABS: Bacteria 0 SEEN /hpf (None Seen); Mucous, Urine 0 SEEN /hpf (<or=2+); Squamous Epithelial Cells - UA 0 SEEN /hpf (0-5); White Blood Cells 0 SEEN /hpf (0-5)
[2020-11-23 00:05] LABS: Color, Urine Yellow (Yellow); Glucose, Dipstick 50 mg/dl (Normal); Ketone-Dipstick Negative (Negative); Leukocyte Esterase-Dipstick Negative /ul (Negative); Nitrite-Dipstick Negative (Negative); Occult Blood-Urine 150 /ul (Negative); Protein-Dipstick Negative (Negative); Urine Bilirubin Dipstick Negative (Negative); Urine Clarity Clear (Clear); Urine Urobilinogen Normal (Normal)
[2020-11-23 00:06] VITALS: PULSE 84
[2020-11-23 00:15] LABS: Red Blood Cells-Urine 5-10 SEEN /hpf (0-5)
[2020-11-23 03:46] VITALS: PULSE 95
[2020-11-23] MEDS: Cefazolin 2 GM in 0.9% Normal Saline 100 ML IV (05:34)
[2020-11-23] MEDS: 0.9% Saline Lock 10 ML Syringe IV (05:34)
[2020-11-23 05:38] VITALS: BP 132/68; PULSE 87; RESP 18; TEMP 37.2; O2SAT 100
[2020-11-23 07:20] VITALS: O2SAT 92
--- NOTE | 2020-11-23 07:38 | PCM.DC.SUM ---
Discharge Date and Diagnosis - Problem List Patient Problems: Active and Suspected Problems Lumbar stenosis without neurogenic claudication (Acute) Date of Admission: 11/21/20 Date of Discharge: 11/23/20 - Primary Discharge Diagnosis Acute Problems: Active Problems Lumbar stenosis without neurogenic claudication (Acute) Hospital Course and Treatment Hospitalist for medical management Operations: - - L3 and L4 laminectomy Summary of Care Provided: The patient is a 70 year old M [] who was admitted on 11/21/2020 after undergoing an L3 and L4 laminectomy. He progressed well with physical therapy and mobilization. His pain was well controlled on medications. He received perioperative antibiotics. The hospitalist was consulted for medical management. He was tolerating his diet. No significant medical issues arose. On 11/23/2020 his drain was pulled and his antibiotics were discontinued and he was discharged home to follow-up in clinic in 3 weeks for suture removal. Discharge instructions were given Patient Problems: Active and Suspected Problems Lumbar stenosis without neurogenic claudication (Acute) Subjective: The patient was seen and examined postoperatively day 2 status post L3 and L4 laminectomy. He is doing very well. He is mobilizing independently. His pain is well controlled. He was having some episodes of irritation with urination. Urinalysis was performed and is negative. No other medical issues reported per the nurse. He is okay for discharge per medicine service. - Physical Exam Vitals/I&O's: Vital Signs Temp Pulse Resp BP Pulse Ox 98.9 F 87 18 132/68 H 100 11/23/20 05:38 11/23/20 05:38 11/23/20 05:38 11/23/20 05:38 11/23/20 05:38 Oxygen Flow Rate (L/min) 1 Oxygen Delivery Method Room Air Weight: 335 lb 1.642 oz Body Mass Index (BMI) 46.7 Finger Stick Blood Glucose 156 Intake and Output for Last 24 Hours 11/21/20 11/22/20 11/23/20 23:59 23:59 23:59 Intake Total 1825 / 1825 4929.08 / 4929.08 110 / 110 Output Total 760 / 760 3785 / 3785 900 / 900 Balance 1065 / 1065 1144.08 / 1144.08 -790 / -790 General: Alert, Oriented x3, Cooperative, No apparent distress HEENT: PERRLA, EOMI Neck: Supple, No JVD Lungs: Normal air movement Cardiovascular: Regular rate, Regular Rhythm Abdomen: Soft, Non Tender, Non-Distended Extremities: No cyanosis, Capillary Refill Less than 3 Seconds, No Calf Tenderness Skin: - - Dressing clean dry and intact. Drain in place and functioning. Dressing taken down and drain removed. Incision well approximated, sutures in place. Minimal tenderness and erythema. No drainage or fluctuance. Neurological: Cranial nerves II-XII grossly intact, Deep Tendon Reflexes 2+/4 and Symmetrical, Neuro grossly intact, Motor Exam 5/5 strength throughout Psych/Mental Status: Normal Affect, Appropriate Microbiology Past 72 Hours 11/20/20 10:50 Interface Orders SARS-CoV-2 Antigen (Rapid) - Final Laboratory Results 11/22/20 06:24: Sodium 137, Potassium 4.2, Chloride 102, Carbon Dioxide 30.0, Anion Gap 5, BUN 18, Creatinine 1.20, Estim Creat Clear Calc 61.01, Est GFR (MDRD) Af Amer 77, Est GFR (MDRD) Non-Af 64, BUN/Creatinine Ratio 15.0, Glucose 159 H, Calcium 8.5, Total Bilirubin 0.60, AST 24, ALT 21, Alkaline Phosphatase 61, Total Protein 6.4, Albumin 3.3, Globulin 3.1, Albumin/Globulin Ratio 1.1 11/22/20 08:01: POC Glucose 166 H 11/22/20 11:37: POC Glucose 172 H 11/22/20 17:25: POC Glucose 201 H 11/22/20 22:22: POC Glucose 219 H 11/22/20 23:45: Urine Color Yellow, Urine Clarity Clear, Urine pH 6.0, Ur Specific [place] 1.010, Urine Protein Negative, Urine Glucose (UA) 50 H, Urine Ketones Negative, Urine Occult Blood 150 H, Urine Nitrite Negative, Urine Bilirubin Negative, Urine Urobilinogen Normal, Ur Leukocyte Esterase Negative, Urine RBC 5-10 SEEN, Urine WBC 0 SEEN, Ur Squamous Epith Cells 0 SEEN, Urine Bacteria 0 SEEN, Urine Mucus 0 SEEN Current Medications Ascorbic Acid (Ascorbic Acid 500 Mg Tablet) 500 mg PO DAILY [facility] Last Admin: 11/22/20 09:22 Dose: 500 mg Documented by: Atorvastatin Calcium (Atorvastatin Calcium 80 Mg Tablet) 80 mg PO QHS [facility] Last Admin: 11/22/20 22:19 Dose: 80 mg Documented by: Cholecalciferol (Cholecalciferol (Vit D3) 1,000 Unit (25mcg)) 2,000 unit PO DAILY [facility] Last Admin: 11/22/20 09:22 Dose: 2,000 unit Documented by: Citalopram Hydrobromide (Citalopram 40 Mg Tablet) 40 mg PO DAILY [facility] Last Admin: 11/22/20 09:22 Dose: 40 mg Documented by: Dextrose (Dextrose 50%-Water 25 Gm/50 Ml Disp.Syrin) 0 gm IV X1 PRN; Protocol PRN Reason: Hypoglycemia Fenofibrate (Fenofibrate 145 Mg Tablet) 145 mg PO QHS [facility] Last Admin: 11/22/20 22:19 Dose: 145 mg Documented by: Gabapentin (Gabapentin 300 Mg Capsule) 300 mg PO BIDCM [facility] Last Admin: 11/22/20 17:26 Dose: 300 mg Documented by: Glucagon (Glucagon 1 Mg/Ml Syringe) 1 mg IM .X1 PRN PRN Reason: Hypoglycemia Cefazolin Sodium 2 gm/ Sodium (Chloride) 110 mls @ 150 mls/hr IV Q8 [facility] Last Infusion: 11/23/20 06:18 Dose: Infused Documented by: Insulin Human Lispro (Insulin Lispro 100 Unit/Ml Insuln.Pen) 0 unit SC ACHS [facility]; Protocol Last Admin: 11/22/20 22:22 Dose: 1 u Documented by: Insulin Human Lispro (Insulin Lispro 100 Unit/Ml Insuln.Pen) 15 unit SC 0800,1200,1700 [facility] Last Admin: 11/22/20 18:27 Dose: 15 u Documented by: Lorazepam (Lorazepam 0.5 Mg Tablet) 0.5 mg PO BID PRN PRN PRN Reason: SLEEP Last Admin: 11/22/20 22:31 Dose: 0.5 mg Documented by: Morphine Sulfate (Morphine 4 Mg/Ml Syringe) 2 - 4 mg IV Q2H PRN PRN PRN Reason: 7-10 out of 10 pain Morphine Sulfate (Morphine 2 Mg/Ml Syringe) 2 - 4 mg IV Q2H PRN PRN PRN Reason: 7-10 out of 10 pain Last Admin: 11/21/20 22:39 Dose: 2 mg Documented by: Multivitamins (Vitamin B Comp W-C Capsule) 1 capsule PO DAILY [facility] Last Admin: 11/22/20 09:22 Dose: 1 capsule Documented by: Multivitamins/Minerals (Multivitamins,Ther W-Minerals Tablet) 1 tablet PO DAILYCM [facility] Last Admin: 11/22/20 09:22 Dose: 1 tablet Documented by: Ondansetron HCl (Ondansetron 4 Mg/2 Ml Vial) 4 mg IV Q8H PRN PRN PRN Reason: NAUSEA Oxycodone HCl (Oxycodone 5 Mg Tablet) 2.5 - 5 mg PO Q4H PRN PRN PRN Reason: 4-7 out of 10 Last Admin: 11/22/20 15:57 Dose: 5 mg Documented by: Sodium Chloride (0.9% Saline Lock 10 Ml Syringe) 10 - 40 ml IV UD PRN PRN Reason: SALINE FLUSH Last Admin: 11/23/20 05:34 Dose: 10 ml Documented by: Discharge Diet: No Restrictions Discharge Activity: - - No repetitive bending twisting or lifting anything greater than 5 pounds May shower in (days): 1 - Keep incision covered with waterproof dressing May resume sexual activity in: 3 weeks Weight Bearing Status: Weight bearing as tolerated Additional Activity Instructions:: No bending, twisting, or lifting anything greater than 5 pounds Call your doctor if your incision/area has: Continuous Slow Oozing, Sudden Increased Bleeding, Increased Pain/ Swelling, Increased Redness, Foul Smelling Discharge, Swelling at the incision site Call your doctor if you observe: Fever of 101 or Higher, Coldness, Increased Pain, Numbness or Tingling, Change in Color, Inability to urinate, Inability to have a bowel movement, Using more than one pad per hour, Shortness of breath, Dizziness, Fainting spells, Swelling in the ankles, Chest pain, Prolonged hiccoughing, Increased palpitations (irregular heartbeat), Calf discomfort, Uncontrolled pain Change Dressing in (Days):: 1 - Daily dressing changes with iodine to incision Cleanse incision/area with: Do not get Incision Wet, Keep Dressing Clean & Dry Additional Dressing/Incision Instructions:: Daily dressing changes with iodine to incision Home Medications: Medications to take at Discharge Ascorbic Acid [Vitamin C] 500 mg PO DAILY 11/08/20 B-Complex with Vitamin C [Super B Complex-Vitamin C] 1 ea PO DAILY 11/08/20 Cholecalciferol (Vitamin D3) [Vitamin D3] 2,000 unit PO DAILY 11/08/20 Citalopram [Celexa] 40 mg PO DAILY 11/08/20 Fenofibrate Nanocrystallized [Fenofibrate] 160 mg PO QHS 11/08/20 Gabapentin [Neurontin] 300 mg PO BIDCM 11/08/20 Insulin Regular, Human [Novolin R] 15 unit SC TID 11/08/20 Lorazepam 0.5 mg PO BID PRN 11/08/20 Multivitamin with Minerals [Multiple Vitamin] 1 ea PO DAILY 11/08/20 Rosuvastatin Calcium [Crestor] 40 mg PO QHS 11/08/20 Ubidecarenone [Coq-10] 200 mg PO DAILY 11/08/20 metFORMIN HCl [Glucophage] 500 mg PO BIDCM 11/08/20 Oxycodone HCl/Acetaminophen [Percocet 5/325] 1 - 2 tab PO Q6H PRN PRN 7 Days #56 tab 11/21/20 cycloBENZAPRine HCl [Flexeril] 5 mg PO TID PRN PRN 30 Days #90 tab 11/21/20 Following Prescriptions Were Given to Patient: cycloBENZAPRine HCl [Flexeril] 5 mg PO TID PRN PRN 30 Days #90 tab PRN Reason: Spasms Transmission Status: Received by [address] Oxycodone HCl/Acetaminophen [Percocet 5/325] 1 - 2 tab PO Q6H PRN PRN 7 Days #56 tab PRN Reason: Pain Transmission Status: Received by [place] [id number] [address] [facility] Primary Care Physician: Dano Ballesteros MD [Primary Care Provider] - Please Follow Up With: Cory Loyd DO - 3 weeks Medical Necessity - Tobacco Use Smoking Status: Former smoker Tobacco Use: Non-smoker Meaningful Use Info Meaningful Use Diagnoses (Choose all that apply): None applicable
--- NOTE | 2020-11-23 07:42 | NURSING ---
aware per Elva RN output on drain was 30cc, requested this RN put it in the computer
[2020-11-23 08:30] VITALS: BP 121/72; PULSE 90; RESP 18; TEMP 36.8; O2SAT 95
[2020-11-23] MEDS: Insulin Lispro 100 UNIT/ML INSULN.PEN SC (09:17)
[2020-11-23] MEDS: Multivitamins,Ther W-Minerals Tablet 1 TABLET PO (09:18)
[2020-11-23] MEDS: Insulin Lispro 100 UNIT/ML INSULN.PEN 15 UNIT SC (09:18)
[2020-11-23] MEDS: Gabapentin 300 MG Capsule PO (09:18)
[2020-11-23] MEDS: Citalopram 40 MG TABLET PO (09:19)
[2020-11-23] MEDS: Vitamin B Comp W-C Capsule 1 CAP PO (09:19)
[2020-11-23] MEDS: Ascorbic Acid 500 MG Tablet PO (09:19)
[2020-11-23 09:31] LABS: Bedside Glucose 173 mg/dL (70-110)
[2020-11-23 11:15] VITALS: BP 122/89; PULSE 88; RESP 18; TEMP 37.1; O2SAT 95
== END 2020-11-23 11:40 | disposition home or self-care (01) ==
LOC: MS3 15:41
PROVIDERS: Anesthesiology; Hospitalist; Internal Medicine; Admitting Provider Orthopaedic Surgery; PCP Family Medicine; Referring Provider Orthopaedic Surgery; Visit Provider Family Medicine
PROC: (CPT 63030; principal; 2020-11-21 11:00)
DX: M48.061 Spinal stenosis, lumbar region without neurogenic claudication (principal); M47.816 Spondylosis without myelopathy or radiculopathy, lumbar region; F41.9 Anxiety disorder, unspecified; F32.9 Major depressive disorder, single episode, unspecified; E78.5 Hyperlipidemia, unspecified; E11.9 Type 2 diabetes mellitus without complications; G89.29 Other chronic pain; E66.01 Morbid (severe) obesity due to excess calories; Z20.828 Contact with and (suspected) exposure to other viral communicable diseases; Z87.891 Personal history of nicotine dependence; Z79.899 Other long term (current) drug therapy; Z79.82 Long term (current) use of aspirin; Z79.4 Long term (current) use of insulin; Z68.42 Body mass index [BMI] 45.0-49.9, adult; G25.81 Restless legs syndrome
CPT/HCPCS: 00670; 63047; 63048; 36415; 71046; 72020; 76000; 80048; 80053; 81001; 82962; 83036; 85025; 85027; 87086; 87426; 93005; 96361; 96365; 96366; 96375; 97162; 99218; 99251; C9803; J7120; A4216; G0378; G0379; G0463; J2405